=== PATIENT | male | born 1940 | race Caucasian/White ===

== ENCOUNTER 2017-08-26 09:02 | Emergency (ER) | payer MEDICARE ==
[~2017-08-26 09:02] MED LIST: AEC81 PO; DULA1.5P SQ; GLIP10TA9 PO; HYDR-309 PO; HYDR100T27 PO; ISOS60TA4 PO; METO50TA18 PO; NATE120T9 PO; OXYB15TA PO; PREG75 PO; SAW450CA7 PO; SERT100T PO; SIMV20TA6 PO; SPIR25TA6 PO; TAMS0.4C32 PO; TRAM50TA4 PO
[2017-08-26 09:52] LABS: BASOPHILS % (AUTO) 0.9 % (0.0-5.0); EOSINOPHILS % (AUTO) 2.4 % (0.0-8.0); HEMATOCRIT 42.1 % (42-54); LYMPHOCYTES % (AUTO) 30.7 % (21.0-51.0); MEAN CORPUSCULAR HGB CONC 33.9 g/dL (32.0-36.0); MEAN CORPUSCULAR VOLUME 88.6 fL (79-99); MONOCYTES % (AUTO) 9.8 % (3.0-13.0); NEUTROPHILS % (AUTO) 56.2 % (40.0-77.0); NUCLEATED RED BLOOD CELLS 0.1 % (0.0-0.19); PLATELET COUNT (AUTO) 148 K/uL (130-400); RED BLOOD CELL COUNT(AUTO) 4.75 MIL/uL (4.50-6.20); RED CELL DISTRIBUTION WIDTH 14.8 % (11.0-15.5); WHITE BLOOD COUNT (AUTO) 9.3 K/uL (4.8-10.8)
[2017-08-26 09:59] LABS: CREATININE 2.5 mg/dL (0.5-1.5); POTASSIUM 3.8 mmol/L (3.5-5.1)
[2017-08-26 10:03] LABS: ALBUMIN 3.3 g/dL (3.5-5.0); BILIRUBIN,TOTAL 0.5 mg/dL (0.2-1.0); TOTAL PROTEIN, SERUM 7.5 g/dL (6.0-8.3)
[2017-08-26 10:12] LABS: B-TYPE NATRIURETIC PEPTIDE 298 pg/mL (0-100)
[2017-08-26 10:43] LABS: APPEARANCE,URINE Clear (CLEAR); BILIRUBIN,URINE Negative (NEGATIVE); COLOR,URINE Yellow (YELLOW); GLUCOSE, URINE (UA) Negative (NEGATIVE); KETONES,URINE Negative (NEGATIVE); LEUKOCYTE ESTERASE ,URINE Small (NEGATIVE); NITRATE,URINE Negative (NEGATIVE); OCCULT BLOOD,URINE Negative (NEGATIVE); PROTEIN,URINE POS 1+ (NEGATIVE); UROBILINOGEN,URINE 0.2 mg/dL (0.2-1.0)
[2017-08-26 10:56] LABS: BACTERIA,URINE Moderate /HPF (None Seen); RBC,URINE 0-1 /HPF (0-1)
[2017-08-26] MEDS ORDERED: MORPHINE SULFATE 4 MG/1ML SYG ONE (11:24)
[2017-08-26] MEDS ORDERED: SODIUM CHLORIDE 0.9% 100 ML IV ONE (13:26)
[2017-08-26] MEDS ORDERED: CEFTRIAXONE SODIUM 1 GM ONE (13:26)
== END 2017-08-26 15:36 | disposition home or self-care (01) ==
LOC: EDH 09:02
DX: N30.00 Acute cystitis without hematuria (principal); R06.00 Dyspnea, unspecified; M54.5 Low back pain; G89.29 Other chronic pain; I11.0 Hypertensive heart disease with heart failure; I50.9 Heart failure, unspecified; E11.9 Type 2 diabetes mellitus without complications; E78.5 Hyperlipidemia, unspecified; I25.10 Atherosclerotic heart disease of native coronary artery without angina pectoris; Z88.8 Allergy status to other drugs, medicaments and biological substances; Z95.0 Presence of cardiac pacemaker; Z79.899 Other long term (current) drug therapy; Z98.890 Other specified postprocedural states
CPT/HCPCS: 36415; 71046; 80053; 81001; 82550; 83690; 83880; 84484 ×2; 85025; 87088; 87804 ×2; 93005 ×2; 96374; 96375; 99285; J0696; J2270

== ENCOUNTER 2017-12-13 01:15 | Inpatient (IN) | payer MEDICARE ==
[~2017-12-13] VITALS: Ht 182.9 cm; Wt 89.5 kg
[~2017-12-13 01:15] MED LIST changes: +ALPR0.255 PO; -HYDR-309 PO; +PANT40TA PO; +POTA99TA4 PO; -PREG75 PO; -SERT100T PO; +SUCR1TAB28 PO
[2017-12-13] MEDS ORDERED: DEXTROSE 50%-WATER 50 ML DISP.SYRIN IV ONE ×2 (01:32→06:07)
[2017-12-13 01:50] LABS: BASOPHILS % (AUTO) 1.3 % (0.0-5.0); EOSINOPHILS % (AUTO) 0.4 % (0.0-8.0); HEMATOCRIT 30.5 % (42-54); LYMPHOCYTES % (AUTO) 14.4 % (21.0-51.0); MEAN CORPUSCULAR HEMOGLOBIN 26.4 pg (27.0-33.0); MEAN CORPUSCULAR HGB CONC 31.8 g/dL (32.0-36.0); MEAN CORPUSCULAR VOLUME 83.2 fL (79-99); MONOCYTES % (AUTO) 6.3 % (3.0-13.0); NEUTROPHILS % (AUTO) 77.6 % (40.0-77.0); NUCLEATED RED BLOOD CELLS 0.1 % (0.0-0.19); PLATELET COUNT (AUTO) 143 K/uL (130-400); RED BLOOD CELL COUNT(AUTO) 3.67 MIL/uL (4.50-6.20); RED CELL DISTRIBUTION WIDTH 15.4 % (11.0-15.5); WHITE BLOOD COUNT (AUTO) 13.6 K/uL (4.8-10.8)
[2017-12-13 02:01] LABS: ALBUMIN 2.7 g/dL (3.5-5.0); BILIRUBIN,TOTAL 0.3 mg/dL (0.2-1.0); CREATININE 3.1 mg/dL (0.5-1.5); POTASSIUM 3.5 mmol/L (3.5-5.1); TOTAL PROTEIN, SERUM 6.1 g/dL (6.0-8.3)
[2017-12-13 02:11] LABS: INR 0.97 (0.85-1.15); PARTIAL THROMBOPLASTIN TIME 28.7 SEC (26.3-35.5); PROTHROMBIN TIME 10.2 SEC (9.6-11.6)
[2017-12-13 02:21] LABS: CREATINE KINASE MB < 0.5 ng/mL (0.5-3.6); CREATINE KINASE, TOTAL 14 U/L (21-232)
[2017-12-13] MEDS ORDERED: SODIUM CHLORIDE 0.9% 1000ML 1,000 ML IV ONE (05:37)
[2017-12-13] MEDS ORDERED: SODIUM CHLORIDE 0.9% 1000ML 1,000 ML IV SCH (05:45)
[2017-12-13] MEDS ORDERED: ONDANSETRON HCL MDV 20ML 2 MG/ML VIAL IVP PRN (05:45)
[2017-12-13 07:30] VITALS: BP 137/69
[2017-12-13] MEDS: PANTOPRAZOLE SODIUM 40 MG TABLET.DR PO SCH ×3 (09:00→21:15)
[2017-12-13] MEDS ORDERED: ONDA8TAB11 PO (10:21)
[2017-12-13] MEDS ORDERED: KRIL1CAP29 PO (10:21)
[2017-12-13] MEDS ORDERED: HYDR-3421 PO (10:21)
[2017-12-13] MEDS ORDERED: SUCR1TAB2 PO (10:21)
[2017-12-13 11:00] VITALS: BP 140/79
[2017-12-13 16:00] VITALS: BP 154/74
[2017-12-13] MEDS ORDERED: NON-FORMULARY MEDICATION 1 EACH (Ondansetron HCl 8 MG) PO SCH (19:00)
[2017-12-13] MEDS ORDERED: HYDROXYZINE HCL 25 MG TABLET PO PRN (19:00)
[2017-12-13] MEDS ORDERED: TRAMADOL HCL 50 MG TABLET PO SCH (19:00)
[2017-12-13 19:59] VITALS: BP 144/69
[2017-12-13] MEDS: OXYBUTYNIN CHLORIDE 15 MG PO SCH (21:00)
[2017-12-13] MEDS: DEXTROSE 5 % AND 0.9 % NACL 1,000 ML IV SCH (21:15)
[2017-12-13] MEDS: SIMVASTATIN 20 MG TABLET PO SCH (21:15)
[2017-12-13] MEDS: METOPROLOL TARTRATE 50 MG TAB PO SCH (21:15)
[2017-12-13] MEDS ORDERED: LATA2.5D2 OU (21:24)
[2017-12-13] MEDS ORDERED: DORZ10DR10 OU (21:24)
[2017-12-13 23:51] VITALS: BP 142/67
[2017-12-14] VITALS (12 sets, daily range): BP systolic 122–170; BP diastolic 59–97
[2017-12-14 06:02] LABS: HEMATOCRIT 27.2 % (42-54); MEAN CORPUSCULAR HEMOGLOBIN 27.5 pg (27.0-33.0); MEAN CORPUSCULAR HGB CONC 32.8 g/dL (32.0-36.0); PLATELET COUNT (AUTO) 129 K/uL (130-400); RED BLOOD CELL COUNT(AUTO) 3.24 MIL/uL (4.50-6.20); RED CELL DISTRIBUTION WIDTH 15.1 % (11.0-15.5); WHITE BLOOD COUNT (AUTO) 5.8 K/uL (4.8-10.8)
[2017-12-14 06:24] LABS: ALBUMIN 2.3 g/dL (3.5-5.0); BILIRUBIN,TOTAL 0.2 mg/dL (0.2-1.0); CREATININE 2.6 mg/dL (0.5-1.5); POTASSIUM 3.4 mmol/L (3.5-5.1); TOTAL PROTEIN, SERUM 5.2 g/dL (6.0-8.3)
[2017-12-14] MEDS: SUCRALFATE 1 GM TABLET PO SCH ×2 (06:59→16:30)
[2017-12-14] MEDS ORDERED: POTASSIUM CHLORIDE 10 MEQ/TAB.SA PO SCH (08:00)
[2017-12-14] MEDS: EPA PO SCH (09:00)
[2017-12-14] MEDS: KRILL PO SCH (09:00)
[2017-12-14] MEDS: LIPIDS PO SCH (09:00)
[2017-12-14] MEDS: POTASSIUM CHLORIDE 10 MEQ/TAB.SA PO SCH ×2 (09:00→10:13)
[2017-12-14] MEDS: DHA PO SCH (09:00)
[2017-12-14] MEDS: OMEGA PO SCH (09:00)
[2017-12-14] MEDS: OXYBUTYNIN CHLORIDE 15 MG PO SCH ×2 (09:00→21:00)
[2017-12-14] MEDS ORDERED: SPIRONOLACTONE 25 MG TAB PO SCH (09:00)
[2017-12-14] MEDS: PANTOPRAZOLE SODIUM 40 MG TABLET.DR PO SCH ×3 (09:00→21:38)
[2017-12-14] MEDS: ASPIRIN 81 MG EC TAB PO SCH (10:08)
[2017-12-14] MEDS: METOPROLOL TARTRATE 50 MG TAB PO SCH ×2 (10:08→21:37)
[2017-12-14] MEDS: TAMSULOSIN HCL 0.4 MG CAP.ER.24H PO SCH (10:09)
[2017-12-14] MEDS: ISOSORBIDE MONO 60 MG TAB.SR PO SCH (10:09)
[2017-12-14] MEDS ORDERED: HEPARIN SODIUM/PF 100UNIT/ML 5ML SYRINGE IV SCH (10:45)
[2017-12-14] MEDS: ALPRAZOLAM 0.25 MG TABLET PO PRN ×2 (12:26→21:55)
[2017-12-14] MEDS: DEXTROSE 5 % AND 0.9 % NACL 1,000 ML IV SCH (13:33)
[2017-12-14 13:45] LABS: APPEARANCE,URINE Clear (CLEAR); BILIRUBIN,URINE Negative (NEGATIVE); COLOR,URINE Yellow (YELLOW); GLUCOSE, URINE (UA) Negative (NEGATIVE); KETONES,URINE Negative (NEGATIVE); LEUKOCYTE ESTERASE ,URINE Trace (NEGATIVE); NITRATE,URINE Negative (NEGATIVE); OCCULT BLOOD,URINE Negative (NEGATIVE); PROTEIN,URINE Negative (NEGATIVE); UROBILINOGEN,URINE 0.2 mg/dL (0.2-1.0)
[2017-12-14 14:02] LABS: BACTERIA,URINE Rare /HPF (None Seen); MUCUS,URINE Rare LPF (None Seen); RBC,URINE 0-1 /HPF (0-1); SQUAMOUS EPITHELIAL CELL,UR Few /HPF (0-2)
[2017-12-14] MEDS: CEFTRIAXONE SODIUM 1 GM IVP SCH (16:30)
[2017-12-14] MEDS: ACETAMINOPHEN 325 MG TAB PO PRN (17:18)
[2017-12-14] MEDS: SPIRONOLACTONE 25 MG TAB PO SCH (21:37)
[2017-12-14] MEDS: SIMVASTATIN 20 MG TABLET PO SCH (21:37)
[2017-12-15] VITALS (14 sets, daily range): BP systolic 129–185; BP diastolic 59–92
[2017-12-15] MEDS: DEXTROSE 5 % AND 0.9 % NACL 1,000 ML IV SCH (05:18)
[2017-12-15] MEDS: SUCRALFATE 1 GM TABLET PO SCH ×2 (06:17→16:12)
[2017-12-15 07:05] LABS: CREATININE 2.5 mg/dL (0.5-1.5); POTASSIUM 3.9 mmol/L (3.5-5.1)
[2017-12-15] MEDS ORDERED: COMPOUND IV REFRIGERATED 1 EACH IVSOLN MISC PRN (07:30)
[2017-12-15] MEDS ORDERED: VANCOMYCIN PROTOCOL PER PHARMACY IV SCH (07:30)
[2017-12-15] MEDS: EPA PO SCH (09:00)
[2017-12-15] MEDS: OXYBUTYNIN CHLORIDE 15 MG PO SCH ×2 (09:00→21:00)
[2017-12-15] MEDS: KRILL PO SCH (09:00)
[2017-12-15] MEDS: DHA PO SCH (09:00)
[2017-12-15] MEDS: PANTOPRAZOLE SODIUM 40 MG TABLET.DR PO SCH ×3 (09:00→22:18)
[2017-12-15] MEDS: OMEGA PO SCH (09:00)
[2017-12-15] MEDS: LIPIDS PO SCH (09:00)
[2017-12-15] MEDS: VANCOMYCIN 1.5 GM in SODIUM CHLORIDE 0.9% 250 ML IV SCH (09:16)
[2017-12-15] MEDS: TAMSULOSIN HCL 0.4 MG CAP.ER.24H PO SCH (09:17)
[2017-12-15] MEDS: METOPROLOL TARTRATE 50 MG TAB PO SCH ×2 (09:18→22:18)
[2017-12-15] MEDS: ASPIRIN 81 MG EC TAB PO SCH (09:18)
[2017-12-15] MEDS: POTASSIUM CHLORIDE 10 MEQ/TAB.SA PO SCH (09:18)
[2017-12-15] MEDS: SPIRONOLACTONE 25 MG TAB PO SCH ×2 (09:18→22:17)
[2017-12-15] MEDS: ISOSORBIDE MONO 60 MG TAB.SR PO SCH (09:19)
[2017-12-15] MEDS: ALPRAZOLAM 0.25 MG TABLET PO PRN (11:21)
[2017-12-15] MEDS ORDERED: LIDOCAINE HCL-MPF 2% 5ML VIAL ONE (14:06)
[2017-12-15] MEDS ORDERED: FENTANYL CITRATE PF 50 MCG/1 ML 2ML VIAL ONE (14:48)
[2017-12-15] MEDS ORDERED: OCTYL 2-CYANOACRYLATE 1 EACH TP ONE (15:08)
[2017-12-15] MEDS: CEFTRIAXONE SODIUM 1 GM IVP SCH (16:12)
[2017-12-15] MEDS: SIMVASTATIN 20 MG TABLET PO SCH (22:18)
[2017-12-16 03:00] VITALS: BP 176/96
[2017-12-16] MEDS: SUCRALFATE 1 GM TABLET PO SCH ×2 (06:19→17:33)
[2017-12-16 07:30] VITALS: BP 167/96
[2017-12-16] MEDS: DHA PO SCH (09:00)
[2017-12-16] MEDS: OXYBUTYNIN CHLORIDE 15 MG PO SCH ×2 (09:00→21:59)
[2017-12-16] MEDS: EPA PO SCH (09:00)
[2017-12-16] MEDS: LIPIDS PO SCH (09:00)
[2017-12-16] MEDS: PANTOPRAZOLE SODIUM 40 MG TABLET.DR PO SCH ×3 (09:00→21:58)
[2017-12-16] MEDS: KRILL PO SCH (09:00)
[2017-12-16] MEDS: OMEGA PO SCH (09:00)
[2017-12-16] MEDS: TAMSULOSIN HCL 0.4 MG CAP.ER.24H PO SCH (10:12)
[2017-12-16] MEDS: ISOSORBIDE MONO 60 MG TAB.SR PO SCH (10:12)
[2017-12-16] MEDS: POTASSIUM CHLORIDE 10 MEQ/TAB.SA PO SCH (10:12)
[2017-12-16] MEDS: METOPROLOL TARTRATE 50 MG TAB PO SCH ×2 (10:12→21:59)
[2017-12-16] MEDS: ASPIRIN 81 MG EC TAB PO SCH (10:12)
[2017-12-16] MEDS: SPIRONOLACTONE 25 MG TAB PO SCH ×2 (10:13→21:00)
[2017-12-16] MEDS: VANCOMYCIN 1.5 GM in SODIUM CHLORIDE 0.9% 250 ML IV SCH (10:26)
[2017-12-16 11:00] VITALS: BP 157/86
[2017-12-16] MEDS: ALPRAZOLAM 0.25 MG TABLET PO PRN (11:57)
[2017-12-16] MEDS: ACETAMINOPHEN 325 MG TAB PO PRN (11:58)
[2017-12-16 16:00] VITALS: BP 182/99
[2017-12-16] MEDS: CEFTRIAXONE SODIUM 1 GM IVP SCH (17:33)
[2017-12-16 19:23] VITALS: BP 138/85
[2017-12-16] MEDS: SIMVASTATIN 20 MG TABLET PO SCH (21:57)
[2017-12-16 23:33] VITALS: BP 163/95
[2017-12-17 03:36] VITALS: BP 126/67
[2017-12-17 07:19] LABS: HEMATOCRIT 27.2 % (42-54); MEAN CORPUSCULAR HEMOGLOBIN 26.6 pg (27.0-33.0); MEAN CORPUSCULAR HGB CONC 31.9 g/dL (32.0-36.0); MEAN CORPUSCULAR VOLUME 83.3 fL (79-99); NUCLEATED RED BLOOD CELLS 0.1 % (0.0-0.19); PLATELET COUNT (AUTO) 94 K/uL (130-400); RED BLOOD CELL COUNT(AUTO) 3.27 MIL/uL (4.50-6.20); RED CELL DISTRIBUTION WIDTH 15.5 % (11.0-15.5); WHITE BLOOD COUNT (AUTO) 4.3 K/uL (4.8-10.8)
[2017-12-17 07:29] LABS: ALBUMIN 2.4 g/dL (3.5-5.0); BILIRUBIN,TOTAL 0.3 mg/dL (0.2-1.0); CREATININE 2.2 mg/dL (0.5-1.5); POTASSIUM 3.6 mmol/L (3.5-5.1); TOTAL PROTEIN, SERUM 5.4 g/dL (6.0-8.3)
[2017-12-17 08:00] VITALS: BP 123/62
[2017-12-17] MEDS: TAMSULOSIN HCL 0.4 MG CAP.ER.24H PO SCH (08:48)
[2017-12-17] MEDS: SPIRONOLACTONE 25 MG TAB PO SCH ×2 (08:48→21:00)
[2017-12-17] MEDS: SUCRALFATE 1 GM TABLET PO SCH ×2 (08:48→18:10)
[2017-12-17] MEDS: ASPIRIN 81 MG EC TAB PO SCH (08:48)
[2017-12-17] MEDS: METOPROLOL TARTRATE 50 MG TAB PO SCH ×2 (08:48→21:13)
[2017-12-17] MEDS: POTASSIUM CHLORIDE 10 MEQ/TAB.SA PO SCH (08:49)
[2017-12-17] MEDS: OXYBUTYNIN CHLORIDE 15 MG PO SCH ×2 (08:49→21:14)
[2017-12-17] MEDS: EPA PO SCH (08:49)
[2017-12-17] MEDS: LIPIDS PO SCH (08:49)
[2017-12-17] MEDS: PANTOPRAZOLE SODIUM 40 MG TABLET.DR PO SCH ×3 (08:49→21:13)
[2017-12-17] MEDS: OMEGA PO SCH (08:49)
[2017-12-17] MEDS: DHA PO SCH (08:49)
[2017-12-17] MEDS: KRILL PO SCH (08:49)
[2017-12-17] MEDS: ISOSORBIDE MONO 60 MG TAB.SR PO SCH (08:49)
[2017-12-17] MEDS: VANCOMYCIN 1.5 GM in SODIUM CHLORIDE 0.9% 250 ML IV SCH (08:56)
[2017-12-17 12:00] VITALS: BP 178/92
[2017-12-17 16:00] VITALS: BP 154/89
[2017-12-17] MEDS: CEFTRIAXONE SODIUM 1 GM IVP SCH (18:10)
[2017-12-17 19:00] VITALS: BP 167/86
[2017-12-17] MEDS: SIMVASTATIN 20 MG TABLET PO SCH (21:13)
[2017-12-17 23:00] VITALS: BP 153/82
[2017-12-18 03:00] VITALS: BP_SYST 162; BP_SYST 186; BP_DIAS 83; BP_DIAS 93
[2017-12-18 05:00] LABS: HEMATOCRIT 27.9 % (42-54); MEAN CORPUSCULAR HEMOGLOBIN 27.8 pg (27.0-33.0); MEAN CORPUSCULAR HGB CONC 33.2 g/dL (32.0-36.0); MEAN CORPUSCULAR VOLUME 83.6 fL (79-99); NUCLEATED RED BLOOD CELLS 0.1 % (0.0-0.19); PLATELET COUNT (AUTO) 107 K/uL (130-400); RED BLOOD CELL COUNT(AUTO) 3.33 MIL/uL (4.50-6.20); RED CELL DISTRIBUTION WIDTH 15.7 % (11.0-15.5); WHITE BLOOD COUNT (AUTO) 4.7 K/uL (4.8-10.8)
[2017-12-18 05:14] LABS: ALBUMIN 2.3 g/dL (3.5-5.0); BAND NEUTROPHILS % (MANUAL) 2 % (0-2); BILIRUBIN,TOTAL 0.3 mg/dL (0.2-1.0); CREATININE 2.1 mg/dL (0.5-1.5); LYMPHOCYTES % (MANUAL) 18 % (22-44); MAN.DIFF COMMENT-IMPRESSION MANUAL DIFFERENTIAL; MONOCYTES % (MANUAL) 4 % (2-9); PLATELET MORPHOLOGY COMMENT DECREASED; POTASSIUM 3.6 mmol/L (3.5-5.1); SEGMENTED NEUTROPHILS % 76 % (40-70); TOTAL PROTEIN, SERUM 5.4 g/dL (6.0-8.3)
[2017-12-18 08:00] VITALS: BP 160/88
[2017-12-18] MEDS: PANTOPRAZOLE SODIUM 40 MG TABLET.DR PO SCH ×2 (08:55→09:12)
[2017-12-18] MEDS: SUCRALFATE 1 GM TABLET PO SCH ×2 (08:55→16:23)
[2017-12-18] MEDS: TAMSULOSIN HCL 0.4 MG CAP.ER.24H PO SCH (08:55)
[2017-12-18] MEDS: SPIRONOLACTONE 25 MG TAB PO SCH (08:55)
[2017-12-18] MEDS: ASPIRIN 81 MG EC TAB PO SCH (08:55)
[2017-12-18] MEDS: ISOSORBIDE MONO 60 MG TAB.SR PO SCH (08:56)
[2017-12-18] MEDS: POTASSIUM CHLORIDE 10 MEQ/TAB.SA PO SCH (08:56)
[2017-12-18] MEDS: OXYBUTYNIN CHLORIDE 15 MG PO SCH (09:00)
[2017-12-18] MEDS ORDERED: VANCOMYCIN 1.25 GM in SODIUM CHLORIDE 0.9% 250 ML IV SCH (09:00)
[2017-12-18] MEDS: METOPROLOL TARTRATE 50 MG TAB PO SCH (09:12)
[2017-12-18 13:22] LABS: INR 1.01 (0.85-1.15); PROTHROMBIN TIME 10.6 SEC (9.6-11.6)
[2017-12-18 16:00] VITALS: BP 153/84
[2017-12-18] MEDS: CEFTRIAXONE SODIUM 1 GM IVP SCH (16:23)
== END 2017-12-18 17:59 | disposition home or self-care (01) | DRG 314 ==
LOC: EDH 01:15 → OBSVTOIN 03:59 → EDHIP 03:59 → 3BH 04:37
PROVIDERS: ADMIT Internal Medicine Nephrology; ATTEND Internal Medicine Nephrology
PROC: 03PY3YZ Removal of Other Device from Upper Artery, Percutaneous Approach (ICD-10-PCS; principal; 2017-12-15)
DX: T80.218A Other infection due to central venous catheter, initial encounter (principal); A41.9 Sepsis, unspecified organism; E43 Unspecified severe protein-calorie malnutrition; N17.1 Acute kidney failure with acute cortical necrosis; C83.30 Diffuse large B-cell lymphoma, unspecified site; N39.0 Urinary tract infection, site not specified; R64 Cachexia; E86.1 Hypovolemia; E11.649 Type 2 diabetes mellitus with hypoglycemia without coma; I25.5 Ischemic cardiomyopathy; I25.10 Atherosclerotic heart disease of native coronary artery without angina pectoris; B96.89 Other specified bacterial agents as the cause of diseases classified elsewhere; E87.6 Hypokalemia; E86.0 Dehydration; G47.33 Obstructive sleep apnea (adult) (pediatric); D64.9 Anemia, unspecified; E11.22 Type 2 diabetes mellitus with diabetic chronic kidney disease; I34.0 Nonrheumatic mitral (valve) insufficiency; I12.9 Hypertensive chronic kidney disease with stage 1 through stage 4 chronic kidney disease, or unspecified chronic kidney disease; E78.5 Hyperlipidemia, unspecified; M19.90 Unspecified osteoarthritis, unspecified site; F32.9 Major depressive disorder, single episode, unspecified; E26.9 Hyperaldosteronism, unspecified; Z96.659 Presence of unspecified artificial knee joint; E66.9 Obesity, unspecified; D69.6 Thrombocytopenia, unspecified; B95.7 Other staphylococcus as the cause of diseases classified elsewhere; I95.1 Orthostatic hypotension; B95.61 Methicillin susceptible Staphylococcus aureus infection as the cause of diseases classified elsewhere; N18.9 Chronic kidney disease, unspecified; Y84.8 Other medical procedures as the cause of abnormal reaction of the patient, or of later complication, without mention of misadventure at the time of the procedure; D70.9 Neutropenia, unspecified; Z74.01 Bed confinement status; Z95.0 Presence of cardiac pacemaker; Z83.3 Family history of diabetes mellitus; Z82.49 Family history of ischemic heart disease and other diseases of the circulatory system; Z88.1 Allergy status to other antibiotic agents; Z88.8 Allergy status to other drugs, medicaments and biological substances; Z68.26 Body mass index [BMI] 26.0-26.9, adult; Z28.21 Immunization not carried out because of patient refusal
CPT/HCPCS: 36415; 36590; 70450; 77001; 80048; 80053; 80202; 81001; 82550; 82553; 82948; 84484; 85025; 85027; 85610; 85730; 87040; 87070; 87088; 87186; 93005; 93306; A4218; J0696; J1642; J1644; J3010; J3370; J3490; J7030; J7042; J7070

== ENCOUNTER 2017-12-20 14:07 | Observation (INO) | payer MEDICARE ==
[~2017-12-20] VITALS: Ht 182.9 cm; Wt 89.0 kg
[~2017-12-20 14:07] MED LIST changes: +DORZ10DR10 OU; -DULA1.5P SQ; -GLIP10TA9 PO; +HYDR-3421 PO; +KRIL1CAP29 PO; +LATA2.5D2 OU; -NATE120T9 PO; +ONDA8TAB11 PO; +SUCR1TAB2 PO; -SUCR1TAB28 PO
[2017-12-20 15:41] LABS: CREATININE 2.8 mg/dL (0.5-1.5); POTASSIUM 4.5 mmol/L (3.5-5.1)
[2017-12-20 15:52] LABS: ALBUMIN 2.4 g/dL (3.5-5.0); BILIRUBIN,TOTAL 0.3 mg/dL (0.2-1.0); TOTAL PROTEIN, SERUM 5.6 g/dL (6.0-8.3)
[2017-12-20 16:06] LABS: BASOPHILS % (AUTO) 0.5 % (0.0-5.0); EOSINOPHILS % (AUTO) 1.8 % (0.0-8.0); HEMATOCRIT 28.9 % (42-54); LYMPHOCYTES % (AUTO) 18.9 % (21.0-51.0); MEAN CORPUSCULAR HEMOGLOBIN 26.4 pg (27.0-33.0); MEAN CORPUSCULAR HGB CONC 31.2 g/dL (32.0-36.0); MEAN CORPUSCULAR VOLUME 84.6 fL (79-99); NEUTROPHILS % (AUTO) 70.8 % (40.0-77.0); PLATELET COUNT (AUTO) 127 K/uL (130-400); RED BLOOD CELL COUNT(AUTO) 3.42 MIL/uL (4.50-6.20); RED CELL DISTRIBUTION WIDTH 15.5 % (11.0-15.5); WHITE BLOOD COUNT (AUTO) 8.1 K/uL (4.8-10.8)
[2017-12-20] MEDS ORDERED: DEXTROSE 50%-WATER 50 ML DISP.SYRIN IV PRN (19:00)
[2017-12-20] MEDS ORDERED: ACETAMINOPHEN 325 MG TAB PO PRN ×2 (19:00→19:15)
[2017-12-20] MEDS ORDERED: GLUCAGON 1MG KIT 1 MG ML IM PRN (19:00)
[2017-12-20] MEDS: INSULIN R PO SSI SQ SCH (21:00)
[2017-12-20 21:25] VITALS: BP 145/75
[2017-12-20] MEDS ORDERED: [UNRECOGNIZED DRUG - OTHER] OD (22:13)
[2017-12-20] MEDS ORDERED: GLIP10TA9 PO (22:13)
[2017-12-20] MEDS ORDERED: PREG100C PO (22:13)
[2017-12-20] MEDS ORDERED: ONDA8TAB12 PO (22:13)
[2017-12-20] MEDS ORDERED: MELA3TAB PO (22:13)
[2017-12-20] MEDS ORDERED: ASPI-555 PO (22:13)
[2017-12-20] MEDS ORDERED: NATE120T9 PO (22:13)
[2017-12-20] MEDS ORDERED: DULA1.5P SQ (22:17)
[2017-12-21] VITALS (7 sets, daily range): BP systolic 116–186; BP diastolic 50–96
[2017-12-21] MEDS: SODIUM CHLORIDE 0.9% 1000ML 1,000 ML IV SCH ×3 (04:38→15:15)
[2017-12-21 05:30] LABS: HEMATOCRIT 27.3 % (42-54); MEAN CORPUSCULAR HEMOGLOBIN 27.4 pg (27.0-33.0); MEAN CORPUSCULAR HGB CONC 32.5 g/dL (32.0-36.0); MEAN CORPUSCULAR VOLUME 84.3 fL (79-99); NUCLEATED RED BLOOD CELLS 0.1 % (0.0-0.19); PLATELET COUNT (AUTO) 128 K/uL (130-400); RED BLOOD CELL COUNT(AUTO) 3.24 MIL/uL (4.50-6.20); RED CELL DISTRIBUTION WIDTH 15.5 % (11.0-15.5); WHITE BLOOD COUNT (AUTO) 5.9 K/uL (4.8-10.8)
[2017-12-21 05:50] LABS: ALBUMIN 2.3 g/dL (3.5-5.0); BILIRUBIN,TOTAL 0.3 mg/dL (0.2-1.0); CREATININE 2.4 mg/dL (0.5-1.5); POTASSIUM 3.5 mmol/L (3.5-5.1); TOTAL PROTEIN, SERUM 5.1 g/dL (6.0-8.3)
[2017-12-21 05:55] LABS: INR 1.01 (0.85-1.15); PARTIAL THROMBOPLASTIN TIME 25.7 SEC (26.3-35.5); PROTHROMBIN TIME 10.6 SEC (9.6-11.6)
[2017-12-21] MEDS: INSULIN R PO SSI SQ SCH ×4 (06:32→21:00)
[2017-12-21] MEDS ORDERED: VANCOMYCIN PROTOCOL PER PHARMACY IV SCH (14:00)
[2017-12-21] MEDS ORDERED: COMPOUND IV REFRIGERATED 1 EACH IVSOLN MISC PRN (14:15)
[2017-12-21] MEDS: VANCOMYCIN 1.25 GM in SODIUM CHLORIDE 0.9% 250 ML IV SCH (14:55)
[2017-12-21] MEDS ORDERED: LOPERAMIDE HCL 2 MG CAP PO PRN (16:30)
[2017-12-21] MEDS ORDERED: METOPROLOL TARTRATE 50 MG TAB ONE (16:34)
[2017-12-21] MEDS: LOPERAMIDE HCL 2 MG CAP PO ONE ×2 (16:34→17:02)
[2017-12-21 17:43] LABS: APPEARANCE,URINE Clear (CLEAR); BILIRUBIN,URINE Negative (NEGATIVE); COLOR,URINE Yellow (YELLOW); GLUCOSE, URINE (UA) Negative (NEGATIVE); KETONES,URINE Negative (NEGATIVE); LEUKOCYTE ESTERASE ,URINE Trace (NEGATIVE); NITRATE,URINE Negative (NEGATIVE); OCCULT BLOOD,URINE Negative (NEGATIVE); PROTEIN,URINE Negative (NEGATIVE); UROBILINOGEN,URINE 0.2 mg/dL (0.2-1.0)
[2017-12-21 18:06] LABS: BACTERIA,URINE Few /HPF (None Seen); RBC,URINE 0-1 /HPF (0-1)
[2017-12-21 18:07] LABS: SQUAMOUS EPITHELIAL CELL,UR Rare /HPF (0-2)
[2017-12-21] MEDS ORDERED: SIMVASTATIN 20 MG TABLET PO SCH (21:00)
[2017-12-21] MEDS: PREGABALIN 100 MG CAPSULE PO SCH (22:05)
[2017-12-21] MEDS: METOPROLOL TARTRATE 50 MG TAB PO SCH (22:05)
[2017-12-21] MEDS: DORZOLAMIDE HCL/TIMOLOL MALEAT DROPS 10 ML BOTTLE OU SCH (22:06)
[2017-12-21] MEDS: HYDRALAZINE HCL 25 MG TABLET PO SCH (22:06)
[2017-12-22 03:00] VITALS: BP 163/60
[2017-12-22 05:34] LABS: HEMATOCRIT 27.5 % (42-54); MEAN CORPUSCULAR HEMOGLOBIN 26.9 pg (27.0-33.0); MEAN CORPUSCULAR HGB CONC 32.3 g/dL (32.0-36.0); MEAN CORPUSCULAR VOLUME 83.1 fL (79-99); PLATELET COUNT (AUTO) 135 K/uL (130-400); RED CELL DISTRIBUTION WIDTH 16.2 % (11.0-15.5); WHITE BLOOD COUNT (AUTO) 6.1 K/uL (4.8-10.8)
[2017-12-22 05:48] LABS: BAND NEUTROPHILS % (MANUAL) 3 % (0-2); EOSINOPHILS % (MANUAL) 3 % (1-6); LYMPHOCYTES % (MANUAL) 15 % (22-44); MAN.DIFF COMMENT-IMPRESSION MANUAL DIFFERENTIAL; MONOCYTES % (MANUAL) 5 % (2-9); PLATELET MORPHOLOGY COMMENT SLIGHTLY DECREASED; SEGMENTED NEUTROPHILS % 74 % (40-70)
[2017-12-22 05:52] LABS: ALBUMIN 2.2 g/dL (3.5-5.0); BILIRUBIN,TOTAL 0.3 mg/dL (0.2-1.0); CREATININE 2.3 mg/dL (0.5-1.5); POTASSIUM 3.8 mmol/L (3.5-5.1); TOTAL PROTEIN, SERUM 5.1 g/dL (6.0-8.3)
[2017-12-22] MEDS: SODIUM CHLORIDE 0.9% 1000ML 1,000 ML IV SCH (06:10)
[2017-12-22] MEDS: INSULIN R PO SSI SQ SCH ×2 (06:11→11:30)
[2017-12-22 07:42] VITALS: BP 163/77
[2017-12-22] MEDS ORDERED: TAMSULOSIN HCL 0.4 MG CAP.ER.24H PO SCH (09:00)
[2017-12-22] MEDS: DORZOLAMIDE HCL/TIMOLOL MALEAT DROPS 10 ML BOTTLE OU SCH (09:00)
[2017-12-22] MEDS ORDERED: SPIRONOLACTONE 25 MG TAB PO SCH (09:00)
[2017-12-22] MEDS ORDERED: ASPIRIN 81MG TAB.CHEW PO SCH (09:00)
[2017-12-22] MEDS: HYDRALAZINE HCL 25 MG TABLET PO SCH (10:54)
[2017-12-22] MEDS: PREGABALIN 100 MG CAPSULE PO SCH (10:54)
[2017-12-22] MEDS: METOPROLOL TARTRATE 50 MG TAB PO SCH (10:54)
[2017-12-22 11:26] VITALS: BP 177/85
[2017-12-22] MEDS: VANCOMYCIN 1.25 GM in SODIUM CHLORIDE 0.9% 250 ML IV SCH (14:22)
[2017-12-22 15:45] VITALS: BP 132/76
== END 2017-12-22 19:30 ==
LOC: EDH 14:07 → EDHIP 18:16 → 3CH 21:43
PROVIDERS: ADMIT Internal Medicine Nephrology; ATTEND Internal Medicine Nephrology
DX: I95.1 Orthostatic hypotension (principal); E86.1 Hypovolemia; I25.10 Atherosclerotic heart disease of native coronary artery without angina pectoris; I12.9 Hypertensive chronic kidney disease with stage 1 through stage 4 chronic kidney disease, or unspecified chronic kidney disease; N18.4 Chronic kidney disease, stage 4 (severe); N17.9 Acute kidney failure, unspecified; E11.22 Type 2 diabetes mellitus with diabetic chronic kidney disease; C83.30 Diffuse large B-cell lymphoma, unspecified site; B95.7 Other staphylococcus as the cause of diseases classified elsewhere; E78.5 Hyperlipidemia, unspecified; G47.33 Obstructive sleep apnea (adult) (pediatric); G93.40 Encephalopathy, unspecified; I25.5 Ischemic cardiomyopathy; I34.0 Nonrheumatic mitral (valve) insufficiency; T80.219A Unspecified infection due to central venous catheter, initial encounter; T82.524A Displacement of infusion catheter, initial encounter; T82.838A Hemorrhage due to vascular prosthetic devices, implants and grafts, initial encounter; Y71.2 Prosthetic and other implants, materials and accessory cardiovascular devices associated with adverse incidents; Y83.8 Other surgical procedures as the cause of abnormal reaction of the patient, or of later complication, without mention of misadventure at the time of the procedure; Y84.8 Other medical procedures as the cause of abnormal reaction of the patient, or of later complication, without mention of misadventure at the time of the procedure; Z82.49 Family history of ischemic heart disease and other diseases of the circulatory system; Z83.3 Family history of diabetes mellitus; Z95.0 Presence of cardiac pacemaker; Z96.659 Presence of unspecified artificial knee joint; Z96.651 Presence of right artificial knee joint; Z96.611 Presence of right artificial shoulder joint
CPT/HCPCS: 36415 ×3; 71045 ×2; 80053 ×3; 81001; 82948 ×9; 84484; 85025 ×2; 85027; 85610; 85730; 87088; 93005; 96365; 96366 ×2; 99285; C1894; G0378 ×49; J3370 ×2; J7030 ×2

== ENCOUNTER 2018-04-02 11:07 | Emergency (ER) | payer MEDICARE ==
[~2018-04-02 11:07] MED LIST changes: +ASPI-555 PO; +DULA1.5P SQ; +FERR325T22 PO; +MELA3TAB PO; +NATE120T9 PO; -ONDA8TAB11 PO; +ONDA8TAB12 PO; -PANT40TA PO; +PANT40TA25 PO; +[UNRECOGNIZED DRUG - OTHER] OD
[2018-04-02] MEDS ORDERED: LIDOCAINE HCL 1% MDV 50ML VIAL ONE (12:43)
== END 2018-04-02 14:03 | disposition home or self-care (01) ==
LOC: EDH 11:07
DX: T82.41XA Breakdown (mechanical) of vascular dialysis catheter, initial encounter (principal); I11.0 Hypertensive heart disease with heart failure; I50.9 Heart failure, unspecified; I25.810 Atherosclerosis of coronary artery bypass graft(s) without angina pectoris; E11.9 Type 2 diabetes mellitus without complications; E78.5 Hyperlipidemia, unspecified; Z88.1 Allergy status to other antibiotic agents; Z88.8 Allergy status to other drugs, medicaments and biological substances; Z98.890 Other specified postprocedural states
CPT/HCPCS: 36581; 77001; 99285; C1751; C1769; J1644 ×2; J3490; 36556

== ENCOUNTER 2018-04-28 14:41 | Observation (INO) | payer MEDICARE ==
[~2018-04-28] VITALS: Ht 182.9 cm; Wt 90.7 kg
[2018-04-28 15:25] VITALS: BP 114/60
--- NOTE | 2018-04-28 15:30 | NUR ---
PATIENT CAME IN , LABS DRAWN. PATIENT TO BE TAKEN TO ROOM 406 POST LAB DRAWN. PATIENT IN NO DISTRESS. AT HIS SIDE.
--- NOTE | 2018-04-28 15:50 | NUR ---
REPORT CALLED TO PHYLLIS GOLDSMITH RN. PATIENT TRANSFERRED VIA WHEELCHAIR IN NO DISTRESS.
[2018-04-28 16:00] VITALS: BP 124/65
--- NOTE | 2018-04-28 17:00 | NUR ---
DR. BARRON PAGED, TO HIS CELLPHONE FOR CLARIFICATION ,SINCE ORDER STATES TO TYPE AND SCREEN BUT NO "TRANSFUSE WORD" - REVIEWED CASE WITH HOUSE SUP AND CHARGE NURSE, ORDERED TO GO AHEAD AND TRANSFUSED THE 2 UNITS
--- NOTE | 2018-04-28 17:20 | NUR ---
DR. ARMANDO PIKE PAGED TO ANSWERING SERVICES, PENDING CALL BACK
--- NOTE | 2018-04-28 17:40 | NUR ---
DR. ARMANDO PIKE AWARE OF CONSULT STATED WILL SEE PT TOMORROW
--- NOTE | 2018-04-28 19:00 | NUR ---
PAGED. DR. ARMANDO PIKE TO ANSWERING SERVICES NOTED . PT TO HAVE SOME SWELLING TO RIGHT ARM , PAGED HER TO NOTIFIED HER, BUT PENDING CALL BACK ENDORSE CARE TO NIGHT NURSE , FULL REPORT GIVEN
[2018-04-28 19:40] VITALS: BP 159/82
[2018-04-28] MEDS ORDERED: FUROSEMIDE 10 MG/ML 2ML VIAL IV SCH (21:00)
[2018-04-28 23:20] VITALS: BP 153/83
[2018-04-29 03:30] VITALS: BP 144/73
[2018-04-29 04:03] LABS: HEMATOCRIT 31.3 % (42-54); MEAN CORPUSCULAR HEMOGLOBIN 32.3 pg (27.0-33.0); MEAN CORPUSCULAR HGB CONC 34.2 g/dL (32.0-36.0); MEAN CORPUSCULAR VOLUME 94.2 fL (79-99); NUCLEATED RED BLOOD CELLS 0.2 % (0.0-0.19); PLATELET COUNT (AUTO) 67 K/uL (130-400); RED BLOOD CELL COUNT(AUTO) 3.32 MIL/uL (4.50-6.20); RED CELL DISTRIBUTION WIDTH 20.6 % (11.0-15.5); WHITE BLOOD COUNT (AUTO) 7.6 K/uL (4.8-10.8)
[2018-04-29 04:16] LABS: CREATININE 1.8 mg/dL (0.5-1.5); POTASSIUM 3.7 mmol/L (3.5-5.1)
[2018-04-29] MEDS ORDERED: TRAMADOL HCL 50 MG TABLET PO SCH (07:45)
[2018-04-29] MEDS ORDERED: ALPRAZOLAM 0.25 MG TABLET PO PRN (07:45)
[2018-04-29] MEDS ORDERED: HYDROXYZINE HCL 25 MG TABLET PO PRN (07:45)
[2018-04-29 07:54] VITALS: BP 137/67
[2018-04-29] MEDS ORDERED: ONDANSETRON ODT 4 MG TAB PO PRN (08:00)
[2018-04-29] MEDS ORDERED: BACITRACIN 3.5 GM TUBE OD SCH (09:00)
[2018-04-29] MEDS ORDERED: OXYBUTYNIN 5 MG TAB.SR.24H PO SCH (09:00)
[2018-04-29] MEDS ORDERED: FERROUS SULFATE 325 MG TABLET.DR PO SCH (09:00)
[2018-04-29] MEDS ORDERED: SPIRONOLACTONE 25 MG TAB PO SCH (09:00)
[2018-04-29] MEDS ORDERED: OXYBUTYNIN CHLORIDE 5 MG TABLET PO SCH (09:00)
[2018-04-29] MEDS ORDERED: POTASSIUM CHLORIDE 10 MEQ/TAB.SA PO SCH (09:00)
[2018-04-29] MEDS ORDERED: TAMSULOSIN HCL 0.4 MG CAP.ER.24H PO SCH (09:00)
[2018-04-29] MEDS ORDERED: PANTOPRAZOLE SODIUM 40 MG TABLET.DR PO SCH (09:00)
[2018-04-29] MEDS ORDERED: ISOSORBIDE MONO 60 MG TAB.SR PO SCH (09:00)
[2018-04-29] MEDS ORDERED: ASPIRIN 81 MG EC TAB PO SCH (09:00)
[2018-04-29] MEDS ORDERED: FISH OIL 1000 MG/CAP PO SCH (09:00)
[2018-04-29] MEDS ORDERED: METOPROLOL TARTRATE 50 MG TAB PO SCH (09:00)
[2018-04-29] MEDS ORDERED: DORZOLAMIDE HCL/TIMOLOL MALEAT DROPS 10 ML BOTTLE OU SCH (09:00)
[2018-04-29] MEDS ORDERED: SAW PALMETTO 450 MG PO SCH (09:00)
[2018-04-29] MEDS ORDERED: HYDRALAZINE HCL 25 MG TABLET PO SCH (09:00)
[2018-04-29] MEDS ORDERED: **HM** TRULICITY 1.5MG SQ SCH (09:00)
--- NOTE | 2018-04-29 09:00 | NUR ---
BM LAST REPORTED BM ON 04/27/18. I DID NOT SEE THIS BM BUT PATIENTS STATES IT WAS BROWN IN COLOR, REGULAR PATTERN AND SOFT CONSISTENCY. Addendum: 04/29/18 at 1210 by SANCHEZ SWENSON RN RN Amended: Links added.
[2018-04-29] MEDS ORDERED: TRAMADOL HCL 50 MG TABLET PO PRN (10:30)
[2018-04-29] MEDS ORDERED: NATEGLINIDE 120 MG PO SCH (11:30)
[2018-04-29 12:06] VITALS: BP 158/84
--- NOTE | 2018-04-29 13:30 | NUR ---
DISCHARGE DISCHARGE TEACHING DONE WITH PATIENT, VERBALIZED UNDERSTANDING. NO NOTED SOB OR DISTRESS. NO NEW PRESCRIPTIONS. PT AWARE OF NEED TO ATTEND DR. BHARDWAJ OFFICE TOMORROW FOR CANCER TREATMENT FOLLOW UP. CHLOE PATENT, FLUSHED WITH 10ML OF NS. PENDING TO BE TRANSFERRED OUT VIA PRIVATE VEHICLE.
[2018-04-29] MEDS ORDERED: SUCRALFATE 1 GM TABLET PO SCH (16:30)
[2018-04-29] MEDS ORDERED: **HM** MELATONIN 3MG PO SCH (21:00)
[2018-04-29] MEDS ORDERED: SIMVASTATIN 20 MG TABLET PO SCH (21:00)
[2018-04-29] MEDS ORDERED: LATANOPROST 2.5 ML DROPS OU SCH (21:00)
== END 2018-04-29 13:41 | disposition home or self-care (01) ==
LOC: DAH 14:41 → EDSTATUS 14:58 → DAHIP 14:58 → 4BH 15:25
PROVIDERS: ADMIT Internal Medicine Hematology & Oncology; ATTEND Internal Medicine Hematology & Oncology
DX: C83.30 Diffuse large B-cell lymphoma, unspecified site (principal); I12.9 Hypertensive chronic kidney disease with stage 1 through stage 4 chronic kidney disease, or unspecified chronic kidney disease; N18.4 Chronic kidney disease, stage 4 (severe); I25.10 Atherosclerotic heart disease of native coronary artery without angina pectoris; I25.5 Ischemic cardiomyopathy; E11.22 Type 2 diabetes mellitus with diabetic chronic kidney disease; G47.33 Obstructive sleep apnea (adult) (pediatric); E78.5 Hyperlipidemia, unspecified; I34.0 Nonrheumatic mitral (valve) insufficiency; D69.6 Thrombocytopenia, unspecified; D64.9 Anemia, unspecified; M19.90 Unspecified osteoarthritis, unspecified site; Z96.659 Presence of unspecified artificial knee joint; Z95.0 Presence of cardiac pacemaker; Z88.8 Allergy status to other drugs, medicaments and biological substances; Z82.49 Family history of ischemic heart disease and other diseases of the circulatory system; Z83.3 Family history of diabetes mellitus
CPT/HCPCS: 36415 ×2; 36430; 80048; 85027; 86850; 86900; 86901; 86922; 96374; G0378 ×24; J1940; P9016 ×2

== ENCOUNTER 2018-06-16 07:21 | Inpatient (IN) | payer MEDICARE ==
[2018-06-16 08:27] LABS: BASOPHILS % (AUTO) 1.4 % (0.0-5.0); EOSINOPHILS % (AUTO) 1.8 % (0.0-8.0); LYMPHOCYTES % (AUTO) 27.5 % (21.0-51.0); MEAN CORPUSCULAR HEMOGLOBIN 32.7 pg (27.0-33.0); MEAN CORPUSCULAR HGB CONC 32.8 g/dL (32.0-36.0); MEAN CORPUSCULAR VOLUME 99.4 fL (79-99); MONOCYTES % (AUTO) 7.4 % (3.0-13.0); NEUTROPHILS % (AUTO) 61.9 % (40.0-77.0); PLATELET COUNT (AUTO) 94 K/uL (130-400); RED BLOOD CELL COUNT(AUTO) 3.72 MIL/uL (4.50-6.20); RED CELL DISTRIBUTION WIDTH 15.9 % (11.0-15.5); WHITE BLOOD COUNT (AUTO) 6.2 K/uL (4.8-10.8)
[2018-06-16 08:47] LABS: CREATININE 1.7 mg/dL (0.5-1.5); POTASSIUM 3.7 mmol/L (3.5-5.1)
[2018-06-16 08:59] LABS: ALBUMIN 3.4 g/dL (3.5-5.0); BILIRUBIN,TOTAL 0.7 mg/dL (0.2-1.0); TOTAL PROTEIN, SERUM 6.8 g/dL (6.0-8.3)
[2018-06-16 09:01] LABS: B-TYPE NATRIURETIC PEPTIDE 2260 pg/mL (0-100)
[2018-06-16] MEDS ORDERED: FUROSEMIDE 10 MG/ML 4ML VIAL ONE (10:16)
[2018-06-16 10:37] LABS: APPEARANCE,URINE Clear (CLEAR); BILIRUBIN,URINE Negative (NEGATIVE); COLOR,URINE Yellow (YELLOW); GLUCOSE, URINE (UA) Negative (NEGATIVE); KETONES,URINE Negative (NEGATIVE); LEUKOCYTE ESTERASE ,URINE Small (NEGATIVE); NITRATE,URINE Negative (NEGATIVE); OCCULT BLOOD,URINE Negative (NEGATIVE); PROTEIN,URINE POS 1+ (NEGATIVE)
[2018-06-16] MEDS ORDERED: PANTOPRAZOLE SODIUM 40 MG TABLET.DR PO SCH (10:37)
[2018-06-16] MEDS ORDERED: ACETAMINOPHEN 325 MG TAB PO PRN (10:45)
[2018-06-16] MEDS ORDERED: FUROSEMIDE 10 MG/ML 4ML VIAL IVP SCH (10:45)
[2018-06-16] MEDS ORDERED: IPRATROPIUM/ALBUTEROL SULFATE 3 ML SOLUTION IH ONE (11:10)
[2018-06-16 11:39] LABS: BACTERIA,URINE Few /HPF (None Seen); RBC,URINE 0-1 /HPF (0-1); SQUAMOUS EPITHELIAL CELL,UR Rare /HPF (0-2)
[2018-06-16] MEDS ORDERED: IPRATROPIUM/ALBUTEROL SULFATE 3 ML SOLUTION IH SCH (12:00)
[2018-06-16] MEDS ORDERED: BACL10TA PO (12:19)
[2018-06-16] MEDS ORDERED: TEMA15CA PO (12:19)
--- NOTE | 2018-06-16 18:24 | NUR ---
DISCHARGE PT LEFT ER AT 1633 PER KATHERINE WELCH.
[2018-06-18] MEDS ORDERED: NIAC1CAP PO (10:39)
[2018-06-18] MEDS ORDERED: SERT50TA12 PO (10:39)
[2018-06-18] MEDS ORDERED: MIRA25TA PO (10:39)
[2018-06-18] MEDS ORDERED: PANT40TA25 PO (10:39)
[2018-06-18] MEDS ORDERED: NAPH10DR OP (10:39)
[2018-06-18] MEDS ORDERED: DIPH25TA20 PO (10:39)
[2018-06-18] MEDS ORDERED: HYDR-4154 PO (10:39)
[2018-06-18] MEDS ORDERED: CIDE300T3 PO (10:39)
== END 2018-06-16 16:33 | disposition home or self-care (01) | DRG 194 ==
LOC: EDH 07:21 → EDHIP 10:15
PROVIDERS: ADMIT Internal Medicine Nephrology; ATTEND Internal Medicine Nephrology
DX: J18.1 Lobar pneumonia, unspecified organism (principal); C83.30 Diffuse large B-cell lymphoma, unspecified site; J81.1 Chronic pulmonary edema; I12.9 Hypertensive chronic kidney disease with stage 1 through stage 4 chronic kidney disease, or unspecified chronic kidney disease; E11.22 Type 2 diabetes mellitus with diabetic chronic kidney disease; N18.3 Chronic kidney disease, stage 3 (moderate); I25.10 Atherosclerotic heart disease of native coronary artery without angina pectoris; I25.5 Ischemic cardiomyopathy; G47.33 Obstructive sleep apnea (adult) (pediatric); F32.9 Major depressive disorder, single episode, unspecified; E78.5 Hyperlipidemia, unspecified; M19.90 Unspecified osteoarthritis, unspecified site; Z95.0 Presence of cardiac pacemaker; Z88.1 Allergy status to other antibiotic agents; Z88.8 Allergy status to other drugs, medicaments and biological substances; Z83.3 Family history of diabetes mellitus; Z82.49 Family history of ischemic heart disease and other diseases of the circulatory system
CPT/HCPCS: 36415; 71045; 80053; 81001; 83880; 84484; 85025; 85378; 93005; 94640; 94664; G0378; J1940

== ENCOUNTER → 2018-08-03 | Outpatient (CLI) | payer MEDICARE ==
[~2018-08-03] MED LIST changes: -AEC81 PO; -ASPI-555 PO; +CIDE300T3 PO; +DIPH25TA20 PO; -DULA1.5P SQ; -FERR325T22 PO; -HYDR-3421 PO; +HYDR-4154 PO; -HYDR100T27 PO; +MIRA25TA PO; +NAPH10DR OP; +NIAC1CAP PO; -ONDA8TAB12 PO; -OXYB15TA PO; -POTA99TA4 PO; +SERT50TA12 PO; -SUCR1TAB2 PO; +TEMA15CA PO
== END | disposition home or self-care (01) ==
LOC: SHCH 14:47
PROVIDERS: ATTEND Internal Medicine Cardiovascular Disease
DX: I11.9 Hypertensive heart disease without heart failure (principal); R09.89 Other specified symptoms and signs involving the circulatory and respiratory systems; Z95.0 Presence of cardiac pacemaker
CPT/HCPCS: 93306

== ENCOUNTER → 2018-12-22 | Outpatient (CLI) | payer MEDICARE ==
[~2018-12-22] MED LIST changes: -MELA3TAB PO; +MELA3TAB66 PO
== END | disposition home or self-care (01) ==
LOC: SHCH 13:46
PROVIDERS: ATTEND Internal Medicine Cardiovascular Disease
DX: I35.8 Other nonrheumatic aortic valve disorders (principal); R06.09 Other forms of dyspnea
CPT/HCPCS: 93306

== ENCOUNTER 2019-08-31 08:47 | Inpatient (IN) | payer MEDICARE ==
[~2019-08-31] VITALS: Ht 182.9 cm; Wt 97.1 kg
[~2019-08-31 08:47] MED LIST changes: -ALPR0.255 PO; +ASPI-556 PO; -DIPH25TA20 PO; +DIPH50 PO; +FURO40TA5 PO; +HYDR-4153 PO; -HYDR-4154 PO; -ISOS60TA4 PO; -LATA2.5D2 OU; -MELA3TAB66 PO; +METO100T14 PO; -METO50TA18 PO; -NAPH10DR OP; -NIAC1CAP PO; -PANT40TA25 PO; +PANT40TA54 PO; +POTA-79 PO; -SAW450CA7 PO; +SAW500CA12 PO; -SIMV20TA6 PO; +TAMS-1 PO; -TAMS0.4C32 PO; -TEMA15CA PO; +TEMA30CA PO; -TRAM50TA4 PO; -[UNRECOGNIZED DRUG - OTHER] OD
[2019-08-31 10:24] LABS: BASOPHILS % (AUTO) 0.2 % (0.0-5.0); EOSINOPHILS % (AUTO) 0.5 % (0.0-8.0); HEMATOCRIT 39.4 % (42-54); LYMPHOCYTES % (AUTO) 16.9 % (21.0-51.0); MEAN CORPUSCULAR HGB CONC 30.7 g/dL (32.0-36.0); MONOCYTES % (AUTO) 5.5 % (3.0-13.0); NEUTROPHILS % (AUTO) 75.2 % (40.0-77.0); PLATELET COUNT (AUTO) 165 K/uL (130-400); RED CELL DISTRIBUTION WIDTH 16.4 % (11.0-15.5); WHITE BLOOD COUNT (AUTO) 9.8 K/uL (4.8-10.8)
[2019-08-31 10:39] LABS: CREATININE 4.3 mg/dL (0.5-1.5); POTASSIUM 4.8 mmol/L (3.5-5.1)
[2019-08-31 10:44] LABS: ALBUMIN 3.6 g/dL (3.5-5.0); BILIRUBIN,TOTAL 0.5 mg/dL (0.2-1.0); INR 1.01 (0.85-1.15); PARTIAL THROMBOPLASTIN TIME 26.2 SEC (26.3-35.5); PROTHROMBIN TIME 10.9 SEC (9.6-11.6); TOTAL PROTEIN, SERUM 6.9 g/dL (6.0-8.3)
[2019-08-31] MEDS ORDERED: CEFTRIAXONE SODIUM 2 GM VIAL ONE (13:04)
[2019-08-31 13:30] LABS: APPEARANCE,URINE Cloudy (CLEAR); BILIRUBIN,URINE Small (NEGATIVE); COLOR,URINE Dark Yellow (YELLOW); GLUCOSE, URINE (UA) Negative (NEGATIVE); KETONES,URINE Negative (NEGATIVE); LEUKOCYTE ESTERASE ,URINE Moderate (NEGATIVE); NITRATE,URINE Negative (NEGATIVE); OCCULT BLOOD,URINE Negative (NEGATIVE); PROTEIN,URINE POS 1+ mg/dL (NEGATIVE); UROBILINOGEN,URINE 0.2 mg/dL (0.2-1.0)
[2019-08-31 14:02] LABS: RBC,URINE 0-1 /HPF (0-1)
[2019-08-31 14:03] LABS: BACTERIA,URINE Few /HPF (None Seen); SQUAMOUS EPITHELIAL CELL,UR Few /HPF (0-2); WBC,URINE 51-100 /HPF (0-1)
[2019-08-31] MEDS ORDERED: DEXTROSE 50%-WATER 50 ML DISP.SYRIN IV ONE (14:11)
[2019-08-31] MEDS ORDERED: DEXTROSE 5 %-0.45 % NACL 1,000 ML IV ONE (14:14)
[2019-08-31] MEDS ORDERED: CEFTRIAXONE SODIUM 1 GM IVP SCH (16:00)
[2019-08-31 17:45] VITALS: BP 136/72
[2019-08-31] MEDS: DEXTROSE 10%-WATER 1,000 ML IV SCH (20:34)
[2019-08-31 21:15] VITALS: BP 146/74
[2019-08-31] MEDS ORDERED: CEFD300C3 PO (21:17)
[2019-08-31] MEDS ORDERED: SIMV-43 PO (21:17)
[2019-08-31] MEDS ORDERED: ISOS60TA4 PO (21:23)
[2019-08-31] MEDS ORDERED: METF-444 PO (21:28)
[2019-08-31] MEDS ORDERED: MV-M1TAB20 PO (21:31)
[2019-09-01 00:04] VITALS: BP 162/73
[2019-09-01] MEDS: DEXTROSE 10%-WATER 1,000 ML IV SCH (02:00)
[2019-09-01 05:11] VITALS: BP 134/78
[2019-09-01 08:00] VITALS: BP 131/84
[2019-09-01 12:00] VITALS: BP 169/96
[2019-09-01] MEDS ORDERED: DEXTROSE 50%-WATER 50 ML DISP.SYRIN IV PRN (12:15)
[2019-09-01] MEDS ORDERED: GLUCAGON 1MG KIT 1 MG ML IM PRN (12:15)
[2019-09-01] MEDS ORDERED: INSULIN HUMULIN R 100 UNIT/ML 3ML ONE (12:18)
[2019-09-01] MEDS: CEFTRIAXONE SODIUM 1 GM IVP SCH (12:23)
[2019-09-01] MEDS ORDERED: FUROSEMIDE 10 MG/ML 2ML VIAL IV SCH (12:30)
[2019-09-01 16:00] VITALS: BP 166/100
--- NOTE | 2019-09-01 16:08 | NUR ---
DCP CM met with pt discussed dc plans. Pt is independent prior to admission, lives at home with spouse. Pt has oxygen equipments, wheelchair, walker at home. Denies any other equipments/services. Feels safe to go back home, spouse able to assist with transportation and needs as necessary. DC plan to home once stable. CM to cont to follow up. Addendum: 09/01/19 at 1609 by TERRY KISER LVN CM Amended: Links added.
[2019-09-01] MEDS: INSULIN HUMULIN R 100 UNIT/ML 3ML SQ SCH ×2 (18:11→21:49)
[2019-09-01 20:00] VITALS: BP 158/82
[2019-09-01] MEDS ORDERED: SIMVASTATIN 20 MG TABLET PO SCH (21:00)
[2019-09-01] MEDS: METOPROLOL TARTRATE 50 MG TAB PO SCH (21:45)
[2019-09-01] MEDS: HYDRALAZINE HCL 25 MG TABLET PO SCH (21:46)
[2019-09-01] MEDS: FUROSEMIDE 10 MG/ML 4ML VIAL IV SCH (21:47)
[2019-09-02] VITALS: BP 141/80
[2019-09-02 04:00] VITALS: BP 148/88
[2019-09-02] MEDS: INSULIN HUMULIN R 100 UNIT/ML 3ML SQ SCH ×2 (06:50→11:30)
[2019-09-02] MEDS: METOPROLOL TARTRATE 50 MG TAB PO SCH (07:50)
[2019-09-02] MEDS: HYDRALAZINE HCL 25 MG TABLET PO SCH (07:50)
[2019-09-02] MEDS: FUROSEMIDE 10 MG/ML 4ML VIAL IV SCH (07:51)
[2019-09-02 08:11] VITALS: BP 152/91
[2019-09-02] MEDS ORDERED: ASPIRIN 81MG TAB.CHEW PO SCH (09:00)
[2019-09-02] MEDS ORDERED: SPIRONOLACTONE 25 MG TAB PO SCH (09:00)
[2019-09-02] MEDS ORDERED: ISOSORBIDE MONO 60 MG TAB.SR PO SCH (09:00)
[2019-09-02 10:10] LABS: CREATININE 3.5 mg/dL (0.5-1.5); POTASSIUM 3.9 mmol/L (3.5-5.1)
[2019-09-02 11:43] VITALS: BP 135/69
[2019-09-02] MEDS: CEFTRIAXONE SODIUM 1 GM IVP SCH (13:00)
--- NOTE | 2019-09-02 13:25 | NUR ---
/discharge THIS NURSE CALLED TO NOTIFY OF DISCHARGE. NURSE EDUCATED ON MEDICATION CHANGES AND RECOMMENDATIONS. NOTIFIED OF FOLLOW UP APPOINTMENT MICHELLE GARCIA. VERBALIZED UNDERSTADNING
--- NOTE | 2019-09-02 13:51 | NUR ---
1320 CI Letter give. Patient also signed IM Letter, I faxed IM Letter to [phone] and placed in chart under consent tab.
[2019-09-02] MEDS ORDERED: FUROSEMIDE 40 MG TABLET PO SCH ×2 (17:00)
== END 2019-09-02 17:00 | disposition home or self-care (01) | DRG 871 ==
LOC: EDH 08:47 → EDHIP 15:00 → 3CH 16:51
PROVIDERS: ADMIT Internal Medicine Hematology & Oncology; ATTEND Internal Medicine Hematology & Oncology
DX: A41.9 Sepsis, unspecified organism (principal); I50.33 Acute on chronic diastolic (congestive) heart failure; I13.2 Hypertensive heart and chronic kidney disease with heart failure and with stage 5 chronic kidney disease, or end stage renal disease; C85.90 Non-Hodgkin lymphoma, unspecified, unspecified site; N39.0 Urinary tract infection, site not specified; N18.5 Chronic kidney disease, stage 5; I42.9 Cardiomyopathy, unspecified; I25.10 Atherosclerotic heart disease of native coronary artery without angina pectoris; E11.649 Type 2 diabetes mellitus with hypoglycemia without coma; E11.22 Type 2 diabetes mellitus with diabetic chronic kidney disease; E78.5 Hyperlipidemia, unspecified; I45.9 Conduction disorder, unspecified; Z96.611 Presence of right artificial shoulder joint; Z96.653 Presence of artificial knee joint, bilateral; Z92.21 Personal history of antineoplastic chemotherapy; Z95.0 Presence of cardiac pacemaker; Z95.5 Presence of coronary angioplasty implant and graft; Z98.41 Cataract extraction status, right eye; Z98.42 Cataract extraction status, left eye; Z88.8 Allergy status to other drugs, medicaments and biological substances
CPT/HCPCS: 36415; 70450; 71045; 80048; 80053; 81001; 82550; 82948; 83605; 83880; 84484; 85025; 85610; 85730; 87040; 87088; 93005; 99291; G0378; J0696; J1815; J1940; J3490; J7042; J7070